=== PATIENT | male | born 2000 | race African-American/Black ===

== ENCOUNTER 2022-11-01 19:30 | Emergency (ER) | payer OTHER ==
[~2022-11-01] VITALS: Ht 180.3 cm; Wt 73.0 kg
[2022-11-01 19:33] VITALS: O2SAT 99
[2022-11-01] MEDS ORDERED: IBUPROFEN 400MG TABLET PO ONE (21:30)
[2022-11-01 21:33] VITALS: BP 121/89
[2022-11-01 21:34] VITALS: PULSE 85; RESP 16; TEMP 98.4
== END 2022-11-01 21:35 | disposition home or self-care (01) ==
LOC: ER 19:30
DX: M25.561 Pain in right knee (principal)
CPT/HCPCS: 99283